=== PATIENT | female | born 1980 | race Caucasian/White ===

== ENCOUNTER → 2025-08-29 | Outpatient (CLI) | payer MEDICAID, SELFPAY ==
--- NOTE | 2025-08-29 09:30 | XR_ITS ---
Examination: CT abdomen without intravenous contrast. Coronal 2-D reconstructions. Sagittal 2-D reconstructions. Date and time of exam: August 29, 2025, 0919 hours INDICATIONS: Abdominal pain bloating diarrhea 3 months, appendectomy 3 months ago CTDI: vol (mGy): 6.69 DLP: (mGycm): 246 Technique: Axial images of the abdomen have been obtained, 3 mm slice thickness, without intravenous contrast 2-D sagittal coronal reconstructions Low dose protocols were performed. One or more of the following dose reduction techniques were used; automated exposure control, adjustment of the mA and/or KV according to patient size, use of iterative reconstruction technique. Findings: No focal liver or splenic lesions, hepatomegaly 18 cm Cholelithiasis 12 mm umbilical hernia containing incarcerated fat Aorta is not enlarged No pericecal inflammatory change No bowel obstruction Moderate osteopenia IMPRESSION: Hepatomegaly, 18 cm with fatty infiltration throughout the liver Cholelithiasis 12 mm umbilical hernia containing incarcerated fat
== END | disposition home or self-care (01) ==
PROVIDERS: PCP Internal Medicine; Referring Provider Nurse Practitioner; Visit Provider Nurse Practitioner
DX: K76.0 Fatty (change of) liver, not elsewhere classified (principal); K80.20 Calculus of gallbladder without cholecystitis without obstruction; K42.0 Umbilical hernia with obstruction, without gangrene
CPT/HCPCS: 74150